=== PATIENT | female | born 1945 | race Caucasian/White ===

== ENCOUNTER 2018-05-25 22:07 | Emergency (ER) | payer MEDICARE, OTHER ==
[~2018-05-25] VITALS: Ht 165.1 cm; Wt 68.0 kg
[~2018-05-25 22:07] MED LIST: CILOXAN5 ML OP; LEVOTHYROXIN0.125 M1 PO; RESTASIS1 EACH OP; THERA TEARS1 EAC1 OP; TOBRADEX EYE DRO5 ML OP
[2018-05-25 22:22] VITALS: BP 138/58
[2018-05-25] MEDS ORDERED: ERYTHROMYCIN E3.5 G3 OPHTHALMIC (22:33)
== END 2018-05-25 22:40 | disposition home or self-care (01) ==
LOC: M.ERS 22:07
DX: H10.9 Unspecified conjunctivitis (principal); E03.9 Hypothyroidism, unspecified; Z90.49 Acquired absence of other specified parts of digestive tract; Z90.89 Acquired absence of other organs; Z85.72 Personal history of non-Hodgkin lymphomas; Z88.8 Allergy status to other drugs, medicaments and biological substances

== ENCOUNTER → 2021-08-30 | Outpatient (CLI) | payer MEDICARE, OTHER ==
[~2021-08-30] MED LIST changes: +ERYTHROMYCIN E3.5 G3 OPHTHALMIC
== END ==
LOC: M.RAD 10:44
PROVIDERS: ATTEND Family Medicine
DX: Z12.31 Encounter for screening mammogram for malignant neoplasm of breast (principal)